=== PATIENT | male | born 1975 ===

== ENCOUNTER 2022-09-10 15:39 | Outpatient (RCR) | payer OTHER, SELFPAY | END 2022-11-28 11:57 | disposition home or self-care (01) | LOC: PT 15:39 | PROVIDERS: PCP Nurse Practitioner; Visit Provider Nurse Practitioner Family | DX: S46.911D Strain of unspecified muscle, fascia and tendon at shoulder and upper arm level, right arm, subsequent encounter (principal); S16.1XXD Strain of muscle, fascia and tendon at neck level, subsequent encounter | CPT/HCPCS: 97010; 97014; 97110; 97112; 97140; 97163; G0283 ==